=== PATIENT | male | born 1945 | race Caucasian/White ===

== ENCOUNTER 2019-12-27 08:22 | Day surgery (SDC) | payer BC, OTHER ==
[2019-12-26 14:56] LABS: Absolute Lymphocytes (CBC) 1.5 K/uL (0.7-4.9); Basophils % 1.5 % (0-1.3); Hematocrit 39.4 % (39.6-49.0); Lymphocytes % 31.8 % (15.3-44.8); MPV 7.5 fL (7.6-11.3); RBC Red Blood Cell Count 4.24 M/uL (4.33-5.43)
--- NOTE | 2019-12-26 15:04 | RAD REPORT ---
EXAM DESCRIPTION: Kedar Manriquez (2 Views)12/26/2019 2:52 pm CLINICAL HISTORY: Preop. Patient having a mass removed from back COMPARISON: None FINDINGS: The lungs appear clear of acute infiltrate. The heart is normal size IMPRESSION: No acute abnormalities displayed
--- NOTE | 2019-12-27 07:05 | EKG ---
Test Date: 2019-12-26 Test Time: 15:43:56 Apple Sorter: MEASUREMENT RESULTS: Intervals: Rate: 59 NJ: 190 QRSD: 100 QT: 414 QTc: 409 [place]: P: 60 NJ: 190 QRS: 57 T: 55 INTERPRETIVE STATEMENTS: Sinus bradycardia Otherwise normal ECG No previous ECG available for comparison Electronically Signed On 12-27-19 07:03:53 CDT by Catracho Melendez
[2019-12-27] MEDS ORDERED: CEFAZOLIN/SWI 1gm 1 GM/10 ML SYR ONE (09:36)
[2019-12-27] MEDS ORDERED: Ringers Lactate 1,000 ML IV ONE (09:36)
[2019-12-27] MEDS ORDERED: SCOPOLAMINE HYDROBROMIDE PATCH TD ONE ×2 (09:45→09:58)
[2019-12-27] MEDS ORDERED: propofoL 200 MG/20 ML VIAL IV ONE (10:43)
[2019-12-27] MEDS ORDERED: MIDAZOLAM HCL 2 MG/2 ML INJ ONE (10:43)
[2019-12-27] MEDS ORDERED: FENTANYL CITR 100 MCG/2 ML ONE (10:43)
[2019-12-27] MEDS ORDERED: LIDOCAINE 2% MPF 5 ML VIAL ONE (10:43)
[2019-12-27] MEDS ORDERED: dexAMETHasone 4 MG/ML VIAL ONE (10:44)
[2019-12-27] MEDS ORDERED: ONDANSETRON 4 MG/2 ML VIAL ONE (11:05)
[2019-12-27] MEDS ORDERED: GLYCOPYRROLATE 0.2 MG/ML SYR ONE ×2 (11:20→11:21)
[2019-12-27] MEDS ORDERED: KETOROLAC 30 MG/ML INJ ONE (11:32)
--- NOTE | 2019-12-27 12:20 | OP ---
Date of Procedure: 12/27/2019 Surgeon: Barrie Zamora MD Software Engineering Associate Manager: VERNON Barron. Preoperative Diagnosis: Infected sebaceous cyst, back. Postoperative Diagnosis: Infected sebaceous cyst, back. Procedure: Wide excision and inflamed sebaceous cyst, back, 8 x 4 cm with layered closure. Estimated Blood Loss: Minimal. Specimen: C and S in cyst. Findings: As above. Drains: [place] quarter-inch. Anesthesia: General. Complication: None. The patient in stable condition was taken to Recovery in good general condition. Description Of Procedure: The patient was brought to the OR and placed in supine position. General anesthesia was begun. The patient was placed in the right lateral position, prepped and draped in [facility] sterile fashion. Marcaine 0.5% was infiltrated locally. A 15-blade was used to make an 8 x 4 cm incision to excise this inflamed sebaceous cyst with multiple openings in the middle of it. Subcuta neous tissue was divided. Entire cyst was excised and cultures done of the pus that was present insi de of it and it was all contained. Wound was irrigated, bleeding was controlled with cautery. Flaps created and then 0 chromic was used to approximate the subcutaneous tissue and 2-0 nylon was used to close the skin after [place] drain was placed, secured with 3-0 nylon. Sterile dressing was applied . The patient was awakened and taken to Recovery in good general condition. Discharge Note: The patient will go to Day Surgery and home when stable. Disposition: Home. Condition: Stable. Discharge Instructions: Resume home medications and diet. Activity as tolerated. No heavy lifting. Keep dressing clean and dry, sponge bath, reinforce dressing p.r.n., Keflex 500 mg p.o. q.6, Ultrac ef 1 tablet p.o. q.4 p.r.n. pain. /MODL Voice ID: [id number] Report ID: [id number]
[2019-12-27] MEDS ORDERED: TRAMADOL 37.5mg/APAP 325mg PER TAB ONE (12:52)
[2019-12-27 14:33] VITALS: BP 130/68; TEMP 97.6; O2SAT 100
== END 2019-12-27 13:40 | disposition home or self-care (01) ==
LOC: OR 08:22
PROVIDERS: ATTEND Surgery
PROC: 0JB70ZZ Excision of Back Subcutaneous Tissue and Fascia, Open Approach (ICD-10-PCS; principal; 2019-12-27 11:15)
DX: L72.0 Epidermal cyst (principal); L08.9 Local infection of the skin and subcutaneous tissue, unspecified; Z20.828 Contact with and (suspected) exposure to other viral communicable diseases
CPT/HCPCS: 93005; 87070; 85025; 80048; 36415; 87205; 88304; 87075; 71046; 11406; U0002; J2704; J1100; J2250; J3010; J0690; J7120; J2405; 88305

== ENCOUNTER 2022-06-04 16:11 | Emergency (ER) | payer BC ==
--- OUTSIDE RECORDS SUMMARY | 2022-06-04 16:20 | XMS REPORT | Continuity of Care Document ---
:1945 Author Organization [facility] t Address [address] [place] [address] Care Team Providers Name Role Phone Asked, No Pcp Primary Care Physician Unavailable Problems This patient has no known problems. Allergies, Adverse Reactions, Alerts This patient has no known allergies or adverse reactions. Social History Social Habit Start Date Stop Date Quantity Comments Source Sex Ass[birth year] At [birth year] [facility] 00:00:00 00:00:00 Smoking Status Start Date Stop Date Source Tobacco smoking consumption unknown [facility] Medications This patient has no known medications. Immunizations Ordered Immunization Filled Immunization Date Status Commen ts Source Name Name PFIZER COVID-19 MRNA 2020-04-30 Completed [facility] VACCINATION 00:00:00 Hospital PFIZER COVID-19 MRNA 2020-04-09 Completed [facility] VACCINATION 00:00:00 Hospital Procedures This patient has no known procedures. Plan of Care Planned Activity Planned Date Details Comments Source Future Scheduled 2022-04-15 INFLUENZA VACCINE [facility] Test 07:24:06 [code = INFLUENZA VACCINE] Future Scheduled 2022-04-15 SHINGLES VACCINES ([address] [facility] Test 07:24:06 of 2) [code = SHINGLES VACCINES (1 of 2)] Future Scheduled 2022-04-15 65+ [facility] VACCINE (1 - PCV) [code = 65+ PNEUMOCOCCAL VACCINE (1 - PCV)] Future Scheduled 2022-04-15 COVID-19 VACCINE (3 - [facility] Test 07:24:06 Booster for Pfizer series) [code = COVID-19 VACCINE (3 - Booster for Pfizer series)] Encounters Start End Encounter Admission Attending Care Care Encounter Source Date/Time Date/Time Type Type Clinicians Facility Department ID 2020-04-30 2020-04-30 Outpatient [facility] [id number] 00:00:00 00:00:[address] 2020-04-09 2020-04-09 Outpatient [facility] [id number] 00:00:00 00:00:[address] Results This patient has no known results.
--- NOTE | 2022-06-04 16:53 | RAD REPORT ---
EXAM DESCRIPTION: CT - Head C Spine Mpr Wo Con - 06/04/2022 4:35 pm CLINICAL HISTORY: Head and neck injury status post fall. Head and neck pain COMPARISON: None. TECHNIQUE: Computed axial tomography of the head and cervical spine was obtained. Sagittal and coronal reconstruction was performed. All CT scans are performed using dose optimization technique as appropriate and may include automated exposure control or mA/KV adjustment according to patient size. FINDINGS: Posterior scalp swelling An intracranial bleed is not seen. The ventricles are normal in caliber. No significant hypodensity within the brain. An extra-axial fluid collection is not noted. Fluid within the visualized sinuses and mastoids is not seen A cervical fracture is not visualized. No dislocation is noted. Spondylosis cervical spine IMPRESSION: No acute intracranial abnormality is seen. A cervical fracture is not visualized.
[2022-06-04 19:41] VITALS: BP 157/87; TEMP 97.5; O2SAT 100
--- NOTE | 2022-06-04 20:32 | EDPHYS ---
Physician Documentation [facility] Name: Long Bella Age: 77 yrs Sex: Male : 1945 Arrival Date: 06/04/2022 Time: 16:16 Bed 9 Private MD: ED Physician Juventino Mera HPI: 06/04 16:25 This 77 yrs old Male presents to ER via Ambulatory with complaints of Fall Injury, jmm Laceration To Head. 16:25 Details of fall: The patient fell from an upright position. Onset: The symptoms/episode jmm began/occurred acutely. Associated injuries: The patient sustained injury to the head. The patient has not experienced similar symptoms in the past. Patient complains of injury to the scalp after falling backwards in the garage. Denies LOC, vomiting, neck pain. . Historical: - Allergies: 16:26 Codeine; hb - Immunization history:: Adult Immunizations up to date. - Social history:: Smoking status: Patient denies any tobacco usage or history of. ROS: 16:25 Constitutional: Negative for fever, chills, and weight loss, Cardiovascular: Negative jmm for chest pain, palpitations, and edema, Respiratory: Negative for shortness of breath, cough, wheezing, and pleuritic chest pain. 16:25 Skin: Positive for laceration(s). 16:25 All other systems are negative. Exam: 16:25 Constitutional: This is a well developed, well nourished patient who is awake, alert, jmm and in no acute distress. Eyes: EOMI, no conjunctival erythema appreciated ENT: Moist Mucus Membranes Neck: Trachea midline, Supple Chest/axilla: Normal chest wall appearance and motion. Cardiovascular: Regular rate and rhythm. No edema appreciated Respiratory: Normal respirations, no respiratory distress appreciated Abdomen/GI: Non distended Back: Normal ROM 16:25 MS/ Extremity: Moves all extremities, no obvious deformities appreciated, no edema noted to the lower extremities Neuro: Awake and alert Psych: Behavior is normal, Mood is normal, Patient is cooperative and pleasant 16:25 Head/face: Noted is a laceration(s), of the left side of the back of head and right side of the back of head. Vital Signs: 16:24 BP 157 / 87; Pulse 60; Resp 18; Temp 97.5; Pulse Ox 100% on R/A; Weight 99.79 kg; hb Height 6 ft. 2 in. ; Pain 10; 16:24 Body Mass Index 28.25 (99.79 kg, 187.96 cm) hb 16:24 Pain Scale: Adult hb MDM: 16:25 Patient medically screened. [facility] 18:08 Differential diagnosis: abrasion, closed head injury. Data reviewed: vital signs, jmm nurses notes, lab test result(s), radiologic studies, CT scan. Counseling: I had a detailed discussion with the patient and/or guardian regarding: the historical points, exam findings, and any diagnostic results supporting the discharge/admit diagnosis, radiology results, the need for outpatient follow up, to return to the emergency department if symptoms worsen or persist or if there are any questions or concerns that arise at home. ED course: Patient given head injury return precautions. patient understood and agrees with the plan of care. . 06/04 16:25 Order name: CT Head C Spine jm Administered Medications: 18:20 Not Given (pt left): Tetanus-Diphtheria Toxoid IM Adult 0.5 ml IM once; Provide Vaccine jl7 Information Statement (VIS). Disposition: 18:46 Co-signature as Attending Physician, Juventino Mera MD I reviewed the patient's care rt provided by the Advanced Practice Provider and agree with the diagnosis and treatment plan. Disposition Summary: 06/04/22 18:03 Discharge Ordered Location: Home [facility] Condition: Stable jm Diagnosis - Abrasion of scalp jmm - Unspecified injury of head, initial encounter jm Followup: jmm - With: Private Physician - When: 2 - 3 days - Reason: Recheck today's complaints, Continuance of care, Re-evaluation by your physician Discharge Instructions: - Discharge Summary Sheet jmm - Abrasion jmm - Head Injury, Adult jm Forms: - Medication Reconciliation Form jm - Thank You Letter jmm - Antibiotic Education jmm - Prescription Opioid Use [facility] Signatures: Dispatcher [employer] EDMS Santosh oRmero PA PA jmm Baxter, Heather, RN RN Juventino Mear MD MD rt Chen Mascorro RN jl7 Corrections: (The following items were deleted from the chart) 18:20 17:00 Wound Care ordered. tony jl7
--- NOTE | 2022-06-04 20:32 | ER ---
Nurse's Notes [facility] Name: Long Bella Age: 77 yrs Sex: Male : 1945 Arrival Date: 06/04/2022 Time: 16:16 Bed 9 Private MD: Diagnosis: Abrasion of scalp;Unspecified injury of head, initial encounter Presentation: 06/04 16:24 Chief complaint: Bumped head on garage door, fell onto buttocks, then fell backwards hb and hit head on cement garage floor. Laceration noted to back of head. Bleeding controlled. Negative LOC. Takes ASA. Coronavirus screen: At this time, the client does not indicate any symptoms associated with coronavirus-19. Ebola Screen: No symptoms or risks identified at this time. Initial Sepsis Screen: Does the patient meet any 2 criteria? No. Patient's initial sepsis screen is negative. Does the patient have a suspected source of infection? No. Patient's initial sepsis screen is negative. Risk Assessment: Do you want to hurt yourself or someone else? Patient reports no desire to harm self or others. Onset of symptoms was June 04, 2022. 16:24 Method Of Arrival: Ambulatory hb 16:24 Acuity: HAYLEY 4 hb Historical: - Allergies: 16:26 Codeine; hb - Immunization history:: Adult Immunizations up to date. - Social history:: Smoking status: Patient denies any tobacco usage or history of. Vital Signs: 16:24 BP 157 / 87; Pulse 60; Resp 18; Temp 97.5; Pulse Ox 100% on R/A; Weight 99.79 kg; hb Height 6 ft. 2 in. ; Pain 1/10; 16:24 Body Mass Index 28.25 (99.79 kg, 187.96 cm) hb 16:24 Pain Scale: Adult hb ED Course: 16:16 Patient arrived in ED. rg4 16:17 Santosh Romero PA is PHCP. tony 16:17 Juventino Mera MD is Attending Physician. m 16:26 Triage completed. hb 16:26 Arm band placed on. hb 16:37 CT Head C Spine In Process Unspecified. EDMS Administered Medications: 18:20 Not Given (pt left): Tetanus-Diphtheria Toxoid IM Adult 0.5 ml IM once; Provide Vaccine jl7 Information Statement (VIS). Outcome: 18:03 Discharge ordered by MD. jimenez 18:20 Discharged to home ambulatory. jl7 18:20 Condition: ERP gave discharge instructions to pt and pt left prior to paperwork being given by nurse 18:20 Discharge instructions given to patient. 18:21 Patient left the ED. jl7 Signatures: Dispatcher [employer] EDMS Santosh Romero PA PA jmm Baxter, Heather RN RN Narda Ambrose rg4 Chen Mascorro RN RN jl7 Corrections: (The following items were deleted from the chart) 16 16:24 Chief complaint: Bumped head on garage door, fell onto buttocks, then fell hb backwards and hit head on cement garage floor. Laceration noted to back of head. Bleeding controlled. Takes ASA hb 16: 16:24 Acuity: HAYLEY 3 hb hb
== END 2022-06-04 18:21 | disposition home or self-care (01) ==
LOC: ER 16:11
DX: S00.01XA Abrasion of scalp, initial encounter (principal); S09.90XA Unspecified injury of head, initial encounter; Z88.5 Allergy status to narcotic agent
CPT/HCPCS: 70450; 72125; 99283